=== PATIENT | male | born 1995 ===

== ENCOUNTER 2018-02-27 10:57 | Day surgery (SDC) | payer OTHER ==
[2018-02-27 11:31] VITALS: BMI 29.5
[2018-02-27] MEDS ORDERED: LIDOCAINE HCL/PF 1% SDV 5ML VIAL ONE (11:51)
[2018-02-27] MEDS ORDERED: LIDOCAINE HCL/PF 2% SDV 5ML VIAL ONE (11:51)
[2018-02-27] MEDS ORDERED: PROPOFOL 20 ML ONE ×3 (11:51)
[2018-02-27 12:28] VITALS: TEMP 97.8
[2018-02-27 13:33] VITALS: BP 115/61; PULSE 62
[2018-02-27] MEDS ORDERED: ONDANSETRON 4 MG/2 ML VIAL IVPUSH PRN (14:01)
[2018-02-27] MEDS ORDERED: oxyCODONE HCL 5 MG TABLET PO PRN ×2 (14:01)
[2018-02-27] MEDS ORDERED: LACTATED RINGERS SOLUTION 1,000 ML IV SCH (14:15)
--- NOTE | 2018-02-28 12:30 | PATH ---
Surgical Pathology Report Patient Name: DANA APODACA [facility]. Rec. #: [id number] /Age/Gender: 1995 (Age: 22) / M Account: [id number] Location: [facility]-ENDOSCOPY Taken: 02/27/2018 Received: 02/27/2018 Reported: 02/28/2018 Physicians: Austin Christian D.O. Specimen(s) Received A: BX DUODENUM B: BX ANGULARIS AND BODY Clinical History Abdominal pain, dyspepsia Postoperative diagnosis: Dyspepsia Final Diagnosis A. DUODENUM, BIOPSY: DUODENAL MUCOSA WITHOUT SIGNIFICANT PATHOLOGIC FINDINGS. B. STOMACH, ANGULARIS AND BODY, BIOPSY: GASTRIC BODY MUCOSA WITH MILD CHRONIC GASTRITIS. IMMUNOHISTOCHEMICAL STAIN FOR H. PYLORI IS NEGATIVE. Electronically Signed Michell Moreno M.D. Gross Description A. Received in formalin, labeled "biopsy duodenum" are 3 caballero, irregular portions of soft tissue ranging from 0.2-0.3 cm. in greatest dimension. The specimens are submitted in toto in one cassette. B. Received in formalin, labeled "biopsy angularis and body" are 3 caballero, irregular portions of soft tissue ranging from 0.2-0.3 cm. in greatest dimension. The specimens are submitted in toto in one cassette. /02/27/2018 saudi02/27/2018
== END 2018-02-27 13:15 | disposition home or self-care (01) ==
LOC: JASU-ENDO 10:57
PROVIDERS: ATTEND Internal Medicine Gastroenterology
PROC: 0DB68ZX Excision of Stomach, Via Natural or Artificial Opening Endoscopic, Diagnostic (ICD-10-PCS; 2018-02-27)
PROC: 0DB98ZX Excision of Duodenum, Via Natural or Artificial Opening Endoscopic, Diagnostic (ICD-10-PCS; principal; 2018-02-27 12:00)
DX: K29.50 Unspecified chronic gastritis without bleeding (principal); R10.13 Epigastric pain
CPT/HCPCS: 88305-TC; 88342-TC